=== PATIENT | male | born 1990 ===

== ENCOUNTER 2017-06-08 21:27 | Emergency (ER) | payer SELFPAY ==
[~2017-06-08] VITALS: Ht 185.4 cm; Wt 73.3 kg
[2017-06-08 22:03] VITALS: Ht 185.4 cm; Wt 73.3 kg
--- NOTE | 2017-06-09 00:05 | RADRPT ---
PROCEDURE: CT facial bones without contrast CLINICAL INDICATION: Postoperative pain. TECHNIQUE: A CT of the face without contrast was performed utilizing axial sections from the angie ble through the orbits. Coronal and sagittal images were also reformatted. One or more of the follo wing dose reduction techniques were used: Automated exposure control, adjustment of the mA and/or kV according to patient size, use of iterative reconstruction technique. The exam CTDIvol = 29.45 mGy and DLP = 571.45 mGy-cm. COMPARISON: None available. FINDINGS: Frontal bone: Intact with the sinuses clear bilaterally. No fracture is present. Ethmoid bone: Intact, the sinuses are clear. Maxilla: Intact, the sinuses show mild mucosal thickening along the floors bilaterally. Note is mad e of braces on the maxillary teeth. Nasal bones: Intact bilaterally. Zygomata: Intact bilaterally. Sphenoid bone: Intact, the sinuses are clear. Mandible: Acute right mandibular condyle is an oblique fracture without evidence of displacement. T here is spurring of the mandibular condyles bilaterally consistent with temporomandibular joint oste oarthrosis. Note is made of braces on the mandibular teeth. Temporal bones: Visualized portions are unremarkable, the included mastoid air cells are clear. Inc idental note is made of cerumen within the external auditory canals bilaterally. Soft tissues: No abnormalities are identified. RPTAT:HJJR IMPRESSION: 1. Nondisplaced fracture at the right mandibular condyle base. 2. Mild bilateral temporomandibular joint osteoarthrosis. 3. Incidental trace bilateral maxillary sinus disease. Physician Nayely Date Time Electronically viewed and signed by Physician Nayely on 06/09/2017 00:05 /
--- NOTE | 2017-06-09 00:29 | ERD ---
ER Documentation Chief Complaint Chief Complaint pt reports sx on jaw 05/23/17 and yawned today and felt a crack HPI This is a 26-year-old male who had surgery on his jaw on the third. He said he on today and felt a crack in his jaw. Denies any new trauma. Denies nausea vomiting chills. Denies any other current complaints. ROS All systems reviewed and are negative except as per history of present illness. Medications Home Meds No Active Prescriptions or Reported Meds PMhx/Soc Medical and Surgical Hx: pt denies Medical Hx History of Surgery: Yes (jaw sx 2016) Anesthesia Reaction: No Hx Neurological Disorder: No Hx Respiratory Disorders: No Hx Cardiac Disorders: No Hx Psychiatric Problems: No Hx Miscellaneous Medical Probl: No Hx Alcohol Use: No Hx Substance Use: No Hx Tobacco Use: No Smoking Status: Never smoker Physical Exam Vitals Vital Signs Date Time Temp Pulse Resp B/P Pulse Ox O2 Delivery O2 Flow Rate FiO2 06/08/17 22:03 99.4 77 16 136/64 99 Physical Exam Const: [] Head: Atraumatic Eyes: Normal Conjunctiva ENT: Normal External Ears, Nose and Mouth. Neck: Full range of motion..~ No meningismus. Resp: Clear to auscultation bilaterally Cardio: Regular rate and rhythm, no murmurs Abd: Soft, non tender, non distended. Normal bowel sounds Skin: No petechiae or rashes Back: No midline or flank tenderness Ext: No cyanosis, or edema Neur: Awake and alert Psych: Normal Mood and Affect Procedures/MDM CT shows no new trauma. Medical decision-making: Patient has a history of jaw fracture. Evidence of joint fracture noted on CT. No new displacement. Advised to follow-up immediately with oral surgeon who did the surgery. Return for worsening symptoms. Departure Diagnosis: Primary Impression: Post-op pain Condition: Stable MILTON LOPEZ Jun 09, 2017 00:29
[2017-06-09] MEDS ORDERED: ONDANSETRON (ODT) 4 MG TAB ODT STA (00:38)
[2017-06-09] MEDS ORDERED: morphine 4 MG/ML VIAL IM STA (00:38)
[2017-06-09] MEDS ORDERED: HYDR-902 PO (00:39)
[2017-06-09 01:40] VITALS: BP 111/63; PULSE 70; RESP 18; TEMP 98.3
== END 2017-06-09 01:09 | disposition home or self-care (01) ==
LOC: E/R 21:27
DX: G89.18 Other acute postprocedural pain (principal)
CPT/HCPCS: 70486